=== PATIENT | male | born 1945 | race Caucasian/White ===

== ENCOUNTER 2017-04-27 10:44 | Emergency (ER) | payer OTHER ==
[2017-04-27 10:55] VITALS: TEMP 98.4
[2017-04-27] MEDS ORDERED: ACETAMINOPHEN 500 MG TAB PO ONE (11:04)
[2017-04-27] MEDS ORDERED: OSELTAMIVIR PHOSPHATE 75 MG CAP PO ONE (11:15)
--- NOTE | 2017-04-27 11:19 | EDPHY ---
General Narrative: CHIEF COMPLAINT: Flu-like symptoms, spouse positive flu HISTORY OF PRESENT ILLNESS: Patient complains of 12 hr history of headache, nausea, body aches, malaise, mild cough. Symptoms started abruptly last night. They similar to the complaints his has, and she tested positive for influenza B yesterday morning. He has no neck pain or stiffness. His headache is generalized and [id number]. He has nausea but no vomiting. No chest pain or shortness of breath. Mild, nonproductive cough. No abdominal pain or dysuria. No rash or lesions. No other associated complaints or modifying factors. REVIEW OF SYSTEMS: Ten systems reviewed and are negative unless otherwise noted in the HPI PCP: None established SPECIALISTS: None PAST MEDICAL HISTORY: Hypertension, BPH PAST SURGICAL HISTORY: No recent surgeries SOCIAL HISTORY: Former smoker remotely. No drug use. 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 Originally from [place] but living here until September FAMILY HISTORY: Noncontributory EXAMINATION General Appearance: Alert, no distress, well-appearing Head: normocephalic, atraumatic Eyes: Pupils equal and round, no conjunctival pallor or injection ENT, Mouth: Mucous membranes moist. Airway is widely patent. Neck: Normal inspection, supple, non-tender Respiratory: Mild rhonchi. No wheezing. No crackles. No diminishment or distress. Cardiovascular: Regular rate and rhythm. No murmur. Gastrointestinal: Obese Abdomen is soft and nontender. No distention or tympany Back: non-tender, no bony abnormalities Neurological: A&O, nonfocal, normal gait Skin: Warm and dry, no rash. No petechiae or purpura. No cellulitis Extremities: Nontender, no pedal edema Psychiatric: Mood and affect normal DIFFERENTIAL DIAGNOSES: Including but not limited to influenza, pneumonia, bronchitis, pneumonitis, viral illness MDM: 11:15 a.m. Flu-like symptoms with a spouse who tested positive for influenza B yesterday morning. Patient's vital signs are all within normal limits at this time. I have ordered chest x-ray to rule out pneumonia as he does have some rhonchi on examination. He has no meningismus. He has declined further laboratory test. I will treat him presumptively with Tamiflu at this time on his influenza test is pending. He is in no acute distress. 1:00 p.m. Chest x-ray is unremarkable for pneumonia as read by me. He has been on pulse oximetry during his admission to the ED and has maintained normal oxygenation without supplemental oxygen. He has been exposed to his spouse who is positive for flu B. His influenza test is negative, but I do feel he warrants treatment with Tamiflu given his exposure in his age. He continues to decline any further testing would like to be discharged home. I do feel he is stable to do so. He will be discharged home with Tamiflu and instructions to return here in 24 hr for recheck if no improvement of symptoms. Additionally, he informs me that he will purchased a pulse oximeter for home use a monitoring. He is comfortable this plan and discharged home stable condition. SUPERVISION: Patient was independently examined, but I discussed the case with my secondary supervising physician Dr. Aguila - History Smoking Status: Former smoker - Objective Vital Signs: Initial Vital Signs Temperature (C) 98.4 F 04/27/17 10:51 Heart Rate 90 04/27/17 10:51 Respiratory Rate 16 04/27/17 10:51 O2 Sat (%) 94 04/27/17 10:51 O2 Delivery Mode Room Air Allergies/Adverse Reactions: atorvastatin [From Lipitor] Allergy (Verified 04/27/17 10:50) methylphenidate [From Ritalin] Allergy (Verified 04/27/17 10:50) morphine Allergy (Verified 04/27/17 10:50) Penicillins Allergy (Verified 04/27/17 10:50) Tetanus Vaccines and Toxoid Allergy (Verified 04/27/17 10:50) Home Medications: Medication Instructions Recorded Albuterol [Proventil Inhaler HFA 1 - 2 puffs IH Q4H PRN #1 mdi 04/27/17 (*)] Aspirin 04/27/17 BENAZEPRIL HCL 04/27/17 Flomax 04/27/17 Oseltamivir Phosphate [Tamiflu 75 75 mg PO BID #10 cap 04/27/17 mg (*)] Laboratory Results: 04/27/17 10:55 Nasal Influenza A PCR NEGATIVE FOR FLU A (NEGATIVE) Nasal Influenza B PCR NEGATIVE FOR FLU B (NEGATIVE) Medications Given: Discontinued Medications Acetaminophen (Tylenol) 1,000 mg PO EDNOW ONE Stop: 04/27/17 11:05 Last Admin: 04/27/17 11:07 Dose: 1,000 mg Oseltamivir Phosphate (Tamiflu) 75 mg PO EDNOW ONE Stop: 04/27/17 11:16 Last Admin: 04/27/17 11:23 Dose: 75 mg Departure - Departure Disposition: Home, Routine, Self-Care Clinical Impression: Flu-like symptoms Condition: Good Instructions: Influenza (ED) Additional Instructions: 1. Tamiflu as prescribed to completion 2. Return to ER in 24 hr for recheck if no improvement in symptoms 3. Return to ER immediately for worsening symptoms, chest pain, shortness of breath Referrals: Tiffanie Domínguez MD [Medical Doctor] - As per Instructions Prescriptions: Albuterol [Proventil Inhaler HFA (*)] 1 - 2 puffs IH Q4H PRN #1 mdi PRN Reason: Short Of Breath/Dyspnea Oseltamivir Phosphate [Tamiflu 75 mg (*)] 75 mg PO BID #10 cap
[2017-04-27 13:24] VITALS: BP 136/82; PULSE 87; RESP 16; O2SAT 93
== END 2017-04-27 13:23 | disposition home or self-care (01) ==
DX: J11.1 Influenza due to unidentified influenza virus with other respiratory manifestations (principal); I10 Essential (primary) hypertension; Z79.82 Long term (current) use of aspirin; Z87.891 Personal history of nicotine dependence

== ENCOUNTER 2017-05-09 03:42 | Emergency (ER) | payer OTHER ==
[2017-05-09 03:52] VITALS: TEMP 97.3
--- NOTE | 2017-05-09 03:57 | EDPHY ---
H & P Stated Complaint: Nosebleed on/off past week HPI/ROS: HPI CHIEF COMPLAINT: Right Nare bleed. HISTORY OF PRESENT ILLNESS: Patient very pleasant 71-year-old male, history of hypertension, otherwise healthy, presents emergency room with a epistaxis out of his right Hernandez. It is anterior. He states over the past 10 days he has had 3 episodes of epistaxis had of the right nose. Patient reports that he just moved here from [place]. He has been here since March. He thinks that his humidifier at home was not working well. He denies his blood pressure being high. Denies digital trauma. Denies trauma. Upon arrival to the emergency room he did say nasal clamp in triage. Since arriving back in emergency room is a clot in the anterior region of his right near. He has no further epistaxis. I gave him multiple options on treatment week packet, blood is cotton cauterize it, given Afrin. He would like to cauterize it. I will refer him to ENT as well. He has no local primary care doctor yet set up from moving. Past Medical History: Hypertension Past Surgical History: Knee surgery, right wrist surgery. Social History: Just moved [facility]. Denies drugs alcohol tobacco. Family History: Noncontributory ROS REVIEW OF SYSTEMS: A comprehensive 10 point review of systems is otherwise negative aside from elements mentioned in the history of present illness. Exam Constitutional triage nursing summary reviewed, vital signs reviewed, awake/ alert. Eyes normal conjunctivae and sclera, EOMI, PERRLA. HENT right Nare: Shows area epistaxis with a clot present. No active bleed at this time. Left Nare Clear. normal inspection, atraumatic, moist mucus membranes, no epistaxis, neck supple/ no meningismus, no raccoon eyes. Respiratory clear to auscultation bilaterally, normal breath sounds, no respiratory distress, no wheezing. Cardiovascular rate normal, regular rhythm, no murmur, no edema, distal pulses normal. Gastrointestinal soft, non-tender, no rebound, no guarding, normal bowel sounds, no distension, no pulsatile mass. Genitourinary no CVA tenderness. Musculoskeletal no midline vertebral tenderness, full range of motion, no calf swelling, no tenderness of extremities, no meningismus, good pulses, neurovascularly intact. Skin pink, warm, & dry, no rash, skin atraumatic. Neurologic awake, alert and oriented x 3, AAOx3, moves all 4 extremities equally, motor intact, sensory intact, CN II-XII intact, normal cerebellar, normal vision, normal speech. Psychiatric normal mood/affect. Heme/Lymph/Immune no lymphadenopathy. Differential Diagnosis: Includes but is not limited to in a particular order anterior epistaxis, posterior epistaxis, digital trauma, dry air causing epistaxis Medical Decision Making: Plan this patient I will cauterize his anterior nose bleed. Will remove the clot. And observe. Re-evaluation: 0420: Silver nitrate sticks I cauterized dizzy anterior epistaxis. He has good hemostasis at this time. A nasal clamp is been placed for 20 min. Will re -evaluate. Source: Patient - Personal History Current Tetanus Diphtheria and Acellular Pertussis (TDAP): No - Medical/Surgical History Hx Asthma: No Hx Chronic Respiratory Disease: No Hx Diabetes: No Hx Cardiac Disease: No Hx Renal Disease: No Hx Cirrhosis: No Hx Alcoholism: No Hx HIV/AIDS: No Hx Splenectomy or Spleen Trauma: No Other PMH: HTN, L knee surgery, R wrist fx, ADHD, PTSD - Social History Smoking Status: Former smoker Constitutional: Initial Vital Signs Temperature (C) 36.3 C 05/09/17 03:50 Heart Rate 74 05/09/17 03:50 Respiratory Rate 19 05/09/17 03:50 Blood Pressure 137/94 H 05/09/17 03:50 O2 Sat (%) 95 05/09/17 03:50 O2 Delivery Mode Room Air Allergies/Adverse Reactions: atorvastatin [From Lipitor] Allergy (Verified 05/09/17 03:48) methylphenidate [From Ritalin] Allergy (Verified 05/09/17 03:48) morphine Allergy (Verified 05/09/17 03:48) Penicillins Allergy (Verified 05/09/17 03:48) Tetanus Vaccines and Toxoid Allergy (Verified 05/09/17 03:48) Home Medications: Medication Instructions Recorded Albuterol [Proventil Inhaler HFA 1 - 2 puffs IH Q4H PRN #1 mdi 04/27/17 (*)] Aspirin 04/27/17 BENAZEPRIL HCL 04/27/17 Flomax 04/27/17 Oseltamivir Phosphate [Tamiflu 75 75 mg PO BID #10 cap 01/10/18 mg (*)] Departure - Departure Disposition: Home, Routine, Self-Care Clinical Impression: Epistaxis Condition: Good Instructions: Nosebleed (ED) Additional Instructions: 1. Return emergency room if you are unable to get your nose to stop bleeding. 2. Apply direct pressure with the clamp for 20 min tilt her head forward. Return if you are unable to get it to stop. 3. Follow up with ENT. Referrals: NONE *PRIMARY CARE P,. [Primary Care Provider] - As per Instructions Arsh Long MD [Medical Doctor] - As per Instructions
[2017-05-09] MEDS ORDERED: SILVER NITRATE APPLICATOR 1 APPL TP ONE (04:11)
[2017-05-09] MEDS ORDERED: OXYMETAZOLINE 30 ML NASAL SPRAY EACHNARE ONE (04:20)
[2017-05-09 05:03] VITALS: BP 133/88; PULSE 70; RESP 16; O2SAT 94
== END 2017-05-09 05:03 | disposition home or self-care (01) ==
PROC: 3E09XTZ Introduction of Destructive Agent into Nose, External Approach (ICD-10-PCS; principal; 2017-05-09)
DX: R04.0 Epistaxis (principal); I10 Essential (primary) hypertension; Z79.82 Long term (current) use of aspirin; Z87.891 Personal history of nicotine dependence